=== PATIENT | male | born 2000 | race Caucasian/White ===

== ENCOUNTER 2022-05-10 12:12 | Emergency (ER) | payer BC ==
[2022-05-10] VITALS (10 sets, daily range): BP systolic 104–136; BP diastolic 64–85
[~2022-05-10] VITALS: Ht 152.4 cm; Wt 86.0 kg
[~2022-05-10 12:12] MED LIST: AMOCLAN400 MG/5 M OR; AUGMENTIN400 MG OR; CORTISPORIN OTI10 ML AD; MUPIROCIN2 % EX; NO; NO MEDS; PREDNISO30ODT OR; TYLENOL & COD12.5 ML OR; ZOFRAN4 M1 OR
== END 2022-05-10 16:03 | disposition home or self-care (01) | DRG 556 ==
LOC: ED 12:12
DX: M79.661 Pain in right lower leg (principal)